=== PATIENT | male | born 1975 | race Hispanic/Latino ===

== ENCOUNTER 2017-11-28 10:35 | Observation (INO) | payer BC ==
[2017-11-28] MEDS ORDERED: DEXAMETHASONE 10 MG/ML VIAL ONE (11:53)
[2017-11-28] MEDS ORDERED: HYDROCOD 2.5mg-ACETAMIN 108mg/5mL Soln ONE (11:54)
[2017-11-28] MEDS ORDERED: NA CHLORIDE 0.9% 1,000 ML ONE (11:54)
[2017-11-28 12:05] LABS: Absolute Lymphocytes (CBC) 2.1 K/uL (0.7-4.9); Absolute Monocytes 1.2 K/uL (0.1-1.3); Absolute Neutrophil 11.9 K/uL (1.8-8.0); Basophils % 0.6 % (0-1.3); Eosinophils % 0.3 % (0-4.4); Hematocrit 43.7 % (39.6-49.0); Lymphocytes % 13.7 % (15.3-44.8); MCH 28.9 pg (27.0-35.0); MCV 87.5 fL (80-100); MPV 9.6 fL (7.6-11.3); Monocytes % 7.9 % (3.3-12.3)
[2017-11-28 12:07] LABS: BUN Blood Urea Nitrogen 9 mg/dL (6-20); Bicarbonate 25 mEq/L (21-31); Glucose Level 181 mg/dL (65-120); Potassium 3.9 mEq/L (3.6-5.0); Sodium Level 135 mEq/L (135-145)
[2017-11-28 12:09] LABS: Protime INR 1.09
--- NOTE | 2017-11-28 12:44 | RAD REPORT ---
EXAM DESCRIPTION: CT - Soft Tissue Neck W/Contr - 11/28/2017 12:34 pm CLINICAL HISTORY: Tonsillar swelling common neck pain fall, no symptomatic improvement on antibiotic therapy TECHNIQUE: During dynamic enhancement using 100 milliliters nonionic IV contrast, axial 5 millimeter thick images of the neck were obtained. All CT scans are performed using dose optimization technique as appropriate and may include automated exposure control or mA/KV adjustment according to patient size. FINDINGS: Intracranial portion of the examination is unremarkable. Mastoid air cells and paranasal s inuses are clear. No globe or orbital content abnormality identified. No nasopharyngeal mucosal mass or asymmetry. Bilateral tonsillar enlargement present. This is much more pronounced on the left. In t he deep lateral margin of the left tonsil there is a 16 millimeter diameter low-attenuation mass. Thi s extends over a 4 centimeter craniocaudal dimension. This has the appearance of a tonsillar abscess. No right tonsillar abscess. No tongue base abnormality seen. No epiglottic thickening or edema. No vocal cord abnormality identified. No retropharyngeal abscess o r abnormal fluid collection. Nonspecific bilateral cervical lymph nodes are present. No necrotic or abscessed lymph nodes seen. Th e parotid, submandibular and thyroid gland tissue show no suspicious findings. No acute bone finding. IMPRESSION: Approximately 16 millimeter diameter by 4 centimeter long left tonsillar abscess. Overall enlargement of the tonsils, left greater than right. Nonspecific bilateral cervical lymphadenopathy. This has the appearance of reactive lymph nodes. No a bscessed, necrotic or clearly malignant lymph nodes.
[2017-11-28] MEDS ORDERED: CLINDAMYCIN 900MG/D5W 900 MG/50 ML BAG IV ONE (13:25)
[2017-11-28] MEDS ORDERED: ONDANSETRON 4 MG/2 ML VIAL IV PRN (17:35)
--- NOTE | 2017-11-28 17:47 | P.HP ---
Certification for Inpatient Patient admitted to: Observation With expected LOS: <2 Midnights Patient will require the following post-hospital care: None Practitioner: I am a practitioner with admitting privileges, knowledge of patient current condition, hospital course, and medical plan of care. Services: Services provided to patient in accordance with Admission requirements found in Title 42 Section 412.3 of the Code of Federal Regulations Patient History Date of Service: 11/28/17 Primary Care Provider: Kevan Reason for admission: Tonsilar Abscess History of Present Illness: 42 y/o M with PMHX of HTN and Type 2 DM presented to the ed with Complains of having sore throat, fever and trouble swallowing that started 1 week ago and progressively got worse. Pt states that he noticed a bump couple of days and thus decided to come to the ER. Pt has not been able to swallow solids and has been having pain during swallowing liquids. No other complains to offer. No Nasal congestion or GOYAL noted. No other associated symptoms. Fever of 101 at home and took tylenol for it which helped. PCP is Dr Mathur In the ER pt had a CT of the neck done with Left tonsilar Abscess finding. ENT was consulted and Medicine was consulted to admit the pt to the hospital for further care. [place] test negative in the ER - Past Medical/Surgical History -: HTN -: Type 2 DM Physical Examination - Physical Exam General: Alert, In no apparent distress, Oriented x3 HEENT: Atraumatic, PERRLA, Other, EOMI Neck: Supple (Erythema and swelling noted in the thoart area. No drooling or tongue deviation noted. ) Respiratory: Clear to auscultation bilaterally, Normal air movement Cardiovascular: Regular rate/rhythm, Normal S1 S2 Gastrointestinal: Normal bowel sounds, No tenderness Musculoskeletal: No tenderness Integumentary: No rashes Neurological: Normal gait, Normal speech, Normal strength at 5/5 x4 extr, Normal tone, Normal affect Lymphatics: No axilla or inguinal lymphadenopathy - Studies Laboratory Data (last 24 hrs) 11/28/17 11:40: PT 12.9 H, INR 1.09, APTT 32.7 11/28/17 11:40: Sodium 135, Potassium 3.9, BUN 9, Creatinine 0.79, Glucose 181 H 11/28/17 11:40: WBC 15.4 H, Hgb 14.5, Hct 43.7, Plt Count 317 Assessment and Plan - Problems (Diagnosis) (1) Tonsil, abscess Current Visit: Yes Status: Acute Plan: Left Tonislar Abscess on the CT scan -NPO, IV fluids -Clindamycin 900 q8h -Decadron 4mg q8h -ENT consulted. Will see pt here (2) HTN (hypertension) Current Visit: Yes Status: Chronic Plan: Restart Home medication Qualifiers: Hypertension type: essential hypertension Qualified Code(s): I10 - Essential (primary) hypertension (3) Diabetes Current Visit: Yes Status: Chronic Plan: Restart home medication Qualifiers: Diabetes mellitus type: type 2 Diabetes mellitus moth exterminator insulin use: without moth exterminator use Diabetes mellitus complication status: without complication Qualified Code(s): E11.9 - Type 2 diabetes mellitus without complications Discharge Plan: Home Plan to discharge in: 24 Hours - Advance Directives Does patient have a Living Will: No Does patient have a Durable POA for Healthcare: No - Code Status/Comfort Care Code Status Assessed: Yes Critical Care: No
--- NOTE | 2017-11-28 17:47 | ER ---
Nurse's Notes [facility] Name: Frolyan Cleary Age: 42 yrs Sex: Male : 1975 Arrival Date: 11/28/2017 Time: 10:52 Bed 17 Private MD: None, None Diagnosis: Left Tonsillar Abscess Presentation: 11/28 10:57 Presenting complaint: Patient states: Swollen tonsils since Sunday, seen by PCP given aj Amoxicillin, not improving. Tonsils swollen bilaterally. Transition of care: patient was not received from another setting of care. Onset of symptoms was November 26, 2017. Care prior to arrival: None. 10:57 Method Of Arrival: Ambulatory aj 10:57 Acuity: DALJIT 4 aj 12:03 Initial Sepsis Screen: Does the patient meet any 2 criteria? No. Patient's initial iw sepsis screen is negative. Does the patient have a suspected source of infection? No. Patient's initial sepsis screen is negative. 12:03 Acuity: DALJIT 3 iw Triage Assessment: 11:00 General: Appears in no apparent distress. comfortable, Behavior is calm, cooperative, aj appropriate for age. Pain: Complains of pain in left aspect of posterior pharynx and right aspect of posterior pharynx. EENT: Throat has enlarged tonsils bilaterally Reports pain when swallowing. Neuro: Level of Consciousness is awake, alert, obeys commands, Oriented to person, place, time, situation, Appropriate for age. Respiratory: Airway is patent Respiratory effort is even, unlabored, Respiratory pattern is regular, symmetrical. Derm: Skin is intact, is healthy with good turgor, Skin is pink, warm \T\ dry. normal. Historical: - Allergies: 11:00 No Known Allergies; aj - Home Meds: 11:00 Amoxicillin Oral [Active]; Insulin: Novolin 70/30 Sub-Q [Active]; Metformin Oral aj [Active]; amlodipine-benazepril 10-20 mg oral cap 1 cap once daily [Active]; Lotrel Oral [Active]; - PMHx: 11:00 Hyperlipidemia; Hypertension; Diabetes - IDDM; aj - PSHx: 11:00 None; aj - Immunization history:: Adult Immunizations up to date. - Social history:: Smoking status: Patient/guardian denies using tobacco. Screenin:24 Abuse screen: Denies threats or abuse. Denies injuries from another. Nutritional iw screening: No deficits noted. Tuberculosis screening: No symptoms or risk factors identified. Fall Risk None identified. Assessment: 11:22 General: Appears in no apparent distress. Behavior is calm, cooperative. General: iw Reports chills for 1-2 days, fever for 1-2 days, feeling ill for 1-2 days, fatigue for 1-2 days. Pain: Complains of pain in left aspect of posterior pharynx and right aspect of posterior pharynx. Neuro: Level of Consciousness is awake, alert, obeys commands, Oriented to person, place, time. Neuro: Reports headache. Cardiovascular: Patient's skin is warm and dry. Respiratory: Airway is patent Respiratory effort is even, unlabored, Breath sounds are clear bilaterally. GI: Patient currently denies nausea, vomiting. EENT: Throat is pink has enlarged tonsils bilaterally with gag reflex present, Reports difficulty swallowing. Musculoskeletal: Range of motion: intact in all extremities. 13:30 Reassessment: Patient appears in no apparent distress at this time. Patient and/or iw family updated on plan of care and expected duration. Pain level reassessed. Patient is alert, oriented x 3, equal unlabored respirations, skin warm/dry/pink. pt states pain has decreased, now 5/10, states that he is now able to talk, VSS, pt updated on POC, waiting to be seen by Dr. Hudson after she is done with clinic. 14:13 Reassessment: Patient appears in no apparent distress at this time. Patient and/or iw family updated on plan of care and expected duration. Pain level reassessed. Patient is alert, oriented x 3, equal unlabored respirations, skin warm/dry/pink. pt requesting more pain medication, still able to talk, VSS, 100% on RA, at bedside. 15:44 Reassessment: Patient appears in no apparent distress at this time. Patient and/or tw2 family updated on plan of care and expected duration. Pain level reassessed. Patient is alert, oriented x 3, equal unlabored respirations, skin warm/dry/pink. awaiting arrival of Dr. Hudson for pt. 16:44 Reassessment: Patient appears in no apparent distress at this time. No changes from tw2 previously documented assessment. Patient and/or family updated on plan of care and expected duration. Pain level reassessed. Patient is alert, oriented x 3, equal unlabored respirations, skin warm/dry/pink. 17:37 Reassessment: Patient appears in no apparent distress at this time. No changes from tw2 previously documented assessment. Patient and/or family updated on plan of care and expected duration. Pain level reassessed. Patient is alert, oriented x 3, equal unlabored respirations, skin warm/dry/pink. 18:04 Reassessment: Patient appears in no apparent distress at this time. No changes from tw2 previously documented assessment. Patient and/or family updated on plan of care and expected duration. Pain level reassessed. Patient is alert, oriented x 3, equal unlabored respirations, skin warm/dry/pink. 19:03 Reassessment: Patient appears in no apparent distress at this time. No changes from jd3 previously documented assessment. Patient and/or family updated on plan of care and expected duration. Pain level reassessed. Patient is alert, oriented x 3, equal unlabored respirations, skin warm/dry/pink. 20:04 Reassessment: Patient appears in no apparent distress at this time. Patient and/or jd3 family updated on plan of care and expected duration. Pain level reassessed. Patient is alert, oriented x 3, equal unlabored respirations, skin warm/dry/pink. pt reported understanding on need for admission. Vital Signs: 11:00 BP 134 / 89; Pulse 89; Resp 17; Temp 98.5; Pulse Ox 98% on R/A; Weight 77.11 kg; Height aj 5 ft. 10 in. (177.80 cm); 13:31 BP 139 / 81; Pulse 74; Resp 18; Pulse Ox 100% on R/A; Pain 5/10; iw 15:29 BP 126 / 84; Pulse 74; Resp 16; Pulse Ox 98% on R/A; iw 15:44 BP 136 / 79; Pulse 76; Resp 17; Pulse Ox 97% on R/A; tw2 16:44 BP 132 / 81; Pulse 79; Resp 17; Pulse Ox 98% on R/A; tw2 17:37 BP 141 / 92; Pulse 82; Resp 17; Pulse Ox 96% on R/A; tw2 18:04 BP 141 / 92; Pulse 79; Resp 18; Pulse Ox 98% on R/A; tw2 19:02 BP 130 / 87; Pulse 77; Resp 17 S; Pulse Ox 99% on R/A; jd3 20:00 BP 129 / 89; Pulse 83; Resp 17 S; Pulse Ox 97% on R/A; jd3 11:00 Body Mass Index 24.39 (77.11 kg, 177.80 cm) ED Course: 10:52 Patient arrived in ED. mr 10:52 None, None is Private Physician. mr 10:58 Triage completed. aj 11:00 Arm band placed on right wrist. Patient placed in waiting room, Patient notified of aj wait time. 11:15 Sury Reeves, RN is Primary Nurse. iw 11:15 Dev Pandey PA is PHCP. cp 11:16 Raphael Knutson MD is Attending Physician. cp 11:39 Radiology exam delayed due to lab results not completed at this time. (BUN/Creatinine). vm2 11:46 Initial lab(s) drawn, by me, sent to lab. Inserted saline lock: 20 gauge in right iw forearm, using aseptic technique. Blood collected. 12:03 Radiology exam delayed due to lab results not completed at this time. (BUN/Creatinine). vm2 12:34 CT Soft Tissue Neck W/contr In Process Unspecified. EDMS 15:28 Primary Nurse role handed off by Sury Reeves RN tw2 15:28 Kathleen Connors RN is Primary Nurse. tw2 15:45 Bed in low position. Adult w/ patient. Pulse ox on. NIBP on. tw2 16:45 Awaiting: ENT specialist. tw2 17:45 Ofelia Quiroz MD is Hospitalizing Provider. cp 18:58 Report given to OSVALDO Rosales. tw2 18:58 No provider procedures requiring assistance completed. tw2 20:02 Patient admitted, IV remains in place. jd3 Administered Medications: 12:02 Drug: Decadron - Dexamethasone 10 mg Route: IVP; Site: right forearm; iw 13:34 Follow up: Response: No adverse reaction; Pain is decreased iw 12:03 Drug: NS 0.9% 1000 ml Route: IV; Rate: 1 bolus; Site: right forearm; iw 20:03 Follow up: Response: No adverse reaction jd3 20:03 Follow up: IV Status: Completed infusion jd3 12:03 Drug: Lortab Liquid 15 ml Route: PO; iw 13:33 Follow up: Response: No adverse reaction; Pain is decreased iw 13:30 Drug: Cleocin 900 mg Route: IVPB; Infused Over: 30 mins; Site: right forearm; iw 20:03 Follow up: Response: No adverse reaction jd3 20:03 Follow up: IV Status: Completed infusion jd3 Outcome: 17:46 Decision to Hospitalize by Provider. cp 20:01 Admitted to Med/surg accompanied by tech, via wheelchair, room 221, with chart, Report jd3 called to Augustine RILEY 20:01 Condition: stable 20:01 Instructed on the need for admit, Demonstrated understanding of instructions. 20:13 Patient left the ED. jd3 Signatures: Dispatcher [employer] EDMS Ivonne Hoover, RN Raina Garcia Irene RN OSVALDO Dev Pandey PA PA cp Wise, Tara RN RN tw2 Nhung Turner 2 Karlos Beckford RN RN jd3 Corrections: (The following items were deleted from the chart) 14:11 13:31 Pulse 74bpm; Resp 18bpm; Pulse Ox 100% RA; Pain 5/10; iw iw
--- NOTE | 2017-11-28 17:47 | EDPHYS ---
Physician Documentation [facility] Name: Froylan Cleary Age: 42 yrs Sex: Male : 1975 Arrival Date: 11/28/2017 Time: 10:52 Bed 17 Private MD: None, None ED Physician Raphael Knutson HPI: 11/28 11:40 This 42 yrs old Male presents to ER via Ambulatory with complaints of Sore cp Throat. 11:40 The patient presents with sore throat, dysphagia, of both solids and liquids. The cp patient describes throat pain as constant. 11:40 Onset: The symptoms/episode began/occurred 2 day(s) ago. Severity of symptoms: in the cp emergency department the symptoms are actually worse, moderately. 11:40 Associated signs and symptoms: Pertinent positives: dysphagia, Pertinent negatives cp cough, earache, fever, headache, vomiting. Historical: - Allergies: 11:00 No Known Allergies; aj - Home Meds: 11:00 Amoxicillin Oral [Active]; Insulin: Novolin 70/30 Sub-Q [Active]; Metformin Oral aj [Active]; amlodipine-benazepril 10-20 mg oral cap 1 cap once daily [Active]; Lotrel Oral [Active]; - PMHx: 11:00 Hyperlipidemia; Hypertension; Diabetes - IDDM; aj - PSHx: 11:00 None; aj - Immunization history:: Adult Immunizations up to date. - Social history:: Smoking status: Patient/guardian denies using tobacco. ROS: 11:48 Constitutional: Negative for body aches, chills, fever, poor PO intake. cp 11:48 Eyes: Negative for injury, pain, redness, and discharge. cp 11:48 ENT: Positive for difficulty swallowing, sore throat, Negative for drainage from ear(s), ear pain, rhinorrhea, difficulty handling secretions. 11:48 Cardiovascular: Negative for chest pain, palpitations. 11:48 Respiratory: Negative for cough, shortness of breath, wheezing. 11:48 Abdomen/GI: Negative for abdominal pain, nausea, vomiting, and diarrhea, anorexia, black/tarry stool, rectal bleeding. 11:48 : Negative for urinary symptoms. 11:48 Skin: Negative for cellulitis, rash. 11:48 Neuro: Negative for altered mental status, headache, weakness. 11:48 All other systems are negative. Exam: 11:55 Constitutional: The patient appears in no acute distress, alert, awake, cp non-diaphoretic, non-toxic, well developed, well nourished. 11:55 Head/Face: Normocephalic, atraumatic. cp 11:55 Eyes: Periorbital structures: appear normal, Pupils: equal, round, and reactive to light and accomodation, Extraocular movements: intact throughout, Conjunctiva: normal, no exudate, no injection, Sclera: no appreciated abnormality, Lids and lashes: appear normal, bilaterally. 11:55 ENT: External ear(s): are unremarkable, Ear canal(s): are normal, clear, TM's: bulging, is not appreciated, bilaterally, dullness, bilaterally, erythema, is not appreciated, bilaterally, Nose: is normal, Mouth: Lips: dry, Oral mucosa: moist, Posterior pharynx: Airway: no evidence of obstruction, patent, Tonsils: bilaterally enlarged, with erythema, Uvula: deviated to right, erythema, that is moderate, exudate, is not appreciated, Voice: is muffled. 11:55 Neck: ROM/movement: is normal, is supple, no range of motions limitations, no meningismus, no nuchal rigidity. 11:55 Chest/axilla: Inspection: normal, Palpation: is normal, no crepitus, no tenderness. 11:55 Cardiovascular: Rate: normal, Rhythm: regular. 11:55 Respiratory: the patient does not display signs of respiratory distress, Respirations: normal, no use of accessory muscles, no retractions, no splinting, labored breathing, is not present, Breath sounds: are clear throughout, no decreased breath sounds, no stridor, no wheezing. 11:55 Abdomen/GI: Inspection: abdomen appears normal, Palpation: abdomen is soft and non-tender, in all quadrants, rebound tenderness, is not appreciated, voluntary guarding, is not appreciated, involuntary guarding, is not appreciated. 11:55 Back: pain, is absent, ROM is normal. 11:55 Skin: cellulitis, is not appreciated, no rash present. 11:55 Neuro: Orientation: to person, place \T\ time. Mentation: is normal, Cerebellar function: is grossly normal, Motor: moves all fours, strength is normal, Sensation: is normal. Vital Signs: 11:00 BP 134 / 89; Pulse 89; Resp 17; Temp 98.5; Pulse Ox 98% on R/A; Weight 77.11 kg; Height aj 5 ft. 10 in. (177.80 cm); 13:31 BP 139 / 81; Pulse 74; Resp 18; Pulse Ox 100% on R/A; Pain 5/10; iw 15:29 BP 126 / 84; Pulse 74; Resp 16; Pulse Ox 98% on R/A; iw 15:44 BP 136 / 79; Pulse 76; Resp 17; Pulse Ox 97% on R/A; tw2 16:44 BP 132 / 81; Pulse 79; Resp 17; Pulse Ox 98% on R/A; tw2 17:37 BP 141 / 92; Pulse 82; Resp 17; Pulse Ox 96% on R/A; tw2 18:04 BP 141 / 92; Pulse 79; Resp 18; Pulse Ox 98% on R/A; tw2 19:02 BP 130 / 87; Pulse 77; Resp 17 S; Pulse Ox 99% on R/A; jd3 20:00 BP 129 / 89; Pulse 83; Resp 17 S; Pulse Ox 97% on R/A; jd3 11:00 Body Mass Index 24.39 (77.11 kg, 177.80 cm) aj MDM: 11:16 Patient medically screened. 12:58 Data reviewed: vital signs, nurses notes, lab test result(s), radiologic studies, CT cp scan. 13:00 Physician consultation: Joann Hudson MD was called at 13:00, was contacted at 13:00, regarding patient's condition, and will see patient in ED, later today. 17:30 Physician consultation: Joann Hudson MD was contacted at 17:30, would like admission per Dr. Ofelia Quiroz MD in the emergency department to see patient at 17:30, wants decadron 10 mg Q8 hr and Clindamycin . 11/28 11:34 Order name: CBC with Diff; Complete Time: 12:27 11/28 12:57 Interpretation: Normal except: WBC 15.4; JONO% 77.5; LYM% 13.7; NEUT A 11.9. 11/28 11:34 Order name: BMP; Complete Time: 12:27 11/28 11:34 Order name: PT-INR; Complete Time: 12:27 cp 11/28 11:34 Order name: Ptt, Activated; Complete Time: 12:27 cp 11/28 11:34 Order name: Rabun Screen Profile; Complete Time: 12:27 cp 11/28 17:38 Order name: Urinalysis [facility] 11/28 11:34 Order name: CT Soft Tissue Neck W/contr; Complete Time: 12:55 cp 11/28 11:34 Order name: IV; Complete Time: 11:46 cp 11/28 17:38 Order name: CONS Physician Consult [facility] 11/28 17:38 Order name: NPO EDAR 11/28 13:03 Order name: NPO; Complete Time: 13:23 cp Administered Medications: 12:02 Drug: Decadron - Dexamethasone 10 mg Route: IVP; Site: right forearm; iw 13:34 Follow up: Response: No adverse reaction; Pain is decreased iw 12:03 Drug: NS 0.9% 1000 ml Route: IV; Rate: 1 bolus; Site: right forearm; iw 20:03 Follow up: Response: No adverse reaction jd3 20:03 Follow up: IV Status: Completed infusion jd3 12:03 Drug: Lortab Liquid 15 ml Route: PO; iw 13:33 Follow up: Response: No adverse reaction; Pain is decreased iw 13:30 Drug: Cleocin 900 mg Route: IVPB; Infused Over: 30 mins; Site: right forearm; iw 20:03 Follow up: Response: No adverse reaction jd3 20:03 Follow up: IV Status: Completed infusion jd3 Disposition: 11/28/17 17:46 Hospitalization ordered by Ofelia Quiroz for Observation. Preliminary diagnosis is Left Tonsillar Abscess. - Bed requested for Telemetry/MedSurg (observation). - Status is Observation. jd3 - Condition is Stable. - Problem is new. - Symptoms have improved. UTI on Admission? No Addendum: 11/29/2017 22:19 Co-signature as Attending Physician, Raphael Knutson MD I agree with the assessment and k dr plan of care. Signatures: Dispatcher [employer] [facility] Ivonne Hoover RN RN aj Rittger, Kevin, MD MD [facility] Sury Reeves RN RN iw Reece Crawford em1 Page, Dev, PA PA cp Beckford, Karlos, RN RN jd3 Corrections: (The following items were deleted from the chart) 11/28 18:27 17:46 Hospitalization Ordered by Ofelia Quiroz MD for Observation. Preliminary em1 diagnosis is Left Tonsillar Abscess. Bed requested for Telemetry/MedSurg (observation). Status is Observation. Condition is Stable. Problem is new. Symptoms have improved. UTI on Admission? No. cp 20:13 18:27 11/28/2017 17:46 Hospitalization Ordered by Ofelia Quiroz MD for Observation. jd3 Preliminary diagnosis is Left Tonsillar Abscess. Bed requested for Telemetry/MedSurg (observation). Status is Observation. Condition is Stable. Problem is new. Symptoms have improved. UTI on Admission? No. em1
[2017-11-28] MEDS: NA CHLORIDE 0.9% 1,000 ML IV SCH (20:42)
[2017-11-28] MEDS: DEXAMETHASONE 4 MG/ML VIAL IV SCH (21:30)
[2017-11-28] MEDS: ENOXAPARIN 40 MG/0.4 ML SQ SCH (21:30)
--- NOTE | 2017-11-28 21:55 | P.CNS ---
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 No prior PERFORMANCE SOLUTIONS SPECIALIST. c/o L ear pain. Allergies No Known Allergies Allergy (Unverified 11/28/17 19:56) - Past Medical/Surgical History -: HTN -: Type 2 DM Physical Examination Temp Pulse Resp BP Pulse Ox 98.9 F 76 20 141/76 H 97 11/28/17 20:00 11/28/17 20:00 11/28/17 20:00 11/28/17 20:00 11/28/17 20:00 General: Alert HEENT: Atraumatic, Normocephalic, PERRLA, Mucous membr. moist/pink, Other (L tonsil deviated to midline, no bulging of palate. Mild hot potato voice, mild trismus, moderate erythema of OP), EOMI Neck: Supple Respiratory: Normal air movement Laboratory Data (last 24 hrs) 11/28/17 11:40: PT 12.9 H, INR 1.09, APTT 32.7 11/28/17 11:40: Sodium 135, Potassium 3.9, BUN 9, Creatinine 0.79, Glucose 181 H 11/28/17 11:40: WBC 15.4 H, Hgb 14.5, Hct 43.7, Plt Count 317 Imagings Data: CT neck images personally reviewed - hypodensity at level of tonsil is deep/ posterior to tonsil - about 1.5 cm from surface. The abscess cavity tracks inferior to the level of the tip of epiglottis. Expected degree of LAD for condition. Conclusions/Impression: Given location of abscess, I&D at bedside would be difficult and would not likely access the inferior aspect of the abscess. The inferior portion is very superficial and close to the mucosal surface and may spontenously rupture with medical therapy. Will start diet today but keep patient NPO after midnight. Will reassess clinically in the AM. If he's significantly improved, will plan for continued medical therapy and discharge. If not improved, will attempt needle/bedside I&D or consider I&D in OR to access inferior portion of the abcess.
[2017-11-28] MEDS ORDERED: Morphine 2 MG/2 ML SYR IV PRN (23:11)
[2017-11-29] MEDS ORDERED: CLINDAMYCIN 900MG/D5W 900 MG/50 ML BAG IV ONE (00:06)
[2017-11-29] MEDS: CLINDAMYCIN INJ 900 MG in NA CHLORIDE 0.9% 50 ML IV SCH ×2 (00:12→09:43)
[2017-11-29] MEDS: DEXAMETHASONE 4 MG/ML VIAL IV SCH ×2 (00:20→09:43)
[2017-11-29] MEDS: NA CHLORIDE 0.9% 1,000 ML IV SCH (04:37)
[2017-11-29 07:04] LABS: Absolute Lymphocytes (CBC) 1.4 K/uL (0.7-4.9); Absolute Monocytes 0.4 K/uL (0.1-1.3); Absolute Neutrophil 8.2 K/uL (1.8-8.0); Basophils % 0.1 % (0-1.3); Hematocrit 42.5 % (39.6-49.0); Lymphocytes % 13.6 % (15.3-44.8); MCH 29.5 pg (27.0-35.0); MCV 87.7 fL (80-100); MPV 9.5 fL (7.6-11.3); Monocytes % 4.3 % (3.3-12.3); RBC Red Blood Cell Count 4.84 M/uL (4.33-5.43)
--- NOTE | 2017-11-29 07:36 | P.PN ---
Date of Service: 11/29/17 Patient feeling much better. Voice improved. Reports during showinging, his spit up some pus and I suspect he his spontaneously rupture the abscess. Patient reports about 4 infections of the throat/tonsils yearly for about 20 years and is interested in tonsillectomy NAD. Alert. L tonsillar swelling/displacement improved. Erythema improved. L INSURANCE FOLLOW UP SPECIALIST, improved with medical therapy. Start diet OK to DC with PO Clinda and Medrol dose pack. FU with Dr Sherwood in about 1 month to further discuss/schedule tonsillecomy
[2017-11-29 08:30] LABS: ALT/SGPT 33 IU/L (10-60); AST/SGOT 16 IU/L (10-42); Albumin 3.3 g/dL (3.2-5.5); Alkaline Phosphatase 92 IU/L (42-121); Bicarbonate 25 mEq/L (21-31); Potassium 4.8 mEq/L (3.6-5.0); Protein, Total 7.1 g/dL (6.0-8.3); Sodium Level 138 mEq/L (135-145)
[2017-11-29 08:41] LABS: BUN Blood Urea Nitrogen 15 mg/dL (6-20); Bilirubin Total 0.5 mg/dL (0.3-1.2); Glucose Level 201 mg/dL (65-120)
[2017-11-29 08:49] LABS: Urine Appearance CLEAR; Urine Bilirubin NEGATIVE (NEG); Urine Blood NEGATIVE (NEG); Urine Color YELLOW; Urine Glucose NEGATIVE (NEG); Urine Protein TRACE (NEG); Urine Specific Gravity >=1.030 (1.005-1.030); Urine Urobilinogen 0.2 mg/dL (0.2-1.0)
[2017-11-29 08:50] LABS: Urine Microscopic Reflex ORDER UMIC
[2017-11-29 09:12] LABS: Urine Bacteria <20 /HPF (NONE SEEN); Urine Culture Reflex Order NOT NEEDED; Urine RBC <5 /HPF (NONE SEEN)
[2017-11-29] MEDS: ENOXAPARIN 40 MG/0.4 ML SQ SCH (09:43)
--- NOTE | 2017-11-29 13:36 | P.SSS ---
Patient History Date of Service: 11/29/17 Primary Care Provider: Kevan Reason for admission: Tonsilar Abscess History of Present Illness: 42 y/o M with PMHX of HTN and Type 2 DM presented to the ed with Complains of having sore throat, fever and trouble swallowing that started 1 week ago and progressively got worse. Pt states that he noticed a bump couple of days and thus decided to come to the ER. Pt has not been able to swallow solids and has been having pain during swallowing liquids. No other complains to offer. No Nasal congestion or GOYAL noted. No other associated symptoms. Fever of 101 at home and took tylenol for it which helped. PCP is Dr Mathur In the ER pt had a CT of the neck done with Left tonsilar Abscess finding. ENT was consulted and Medicine was consulted to admit the pt to the hospital for further care. Zavala test negative in the ER Allergies No Known Allergies Allergy (Verified 11/28/17 23:33) Home Medications: Insulin Aspart Protam & Aspart [Novolog Mix 70-30 Flexpen Syrn] 6 unit SQ SEECOM 11/28/17 Insulin Aspart Protam & Aspart [Novolog Mix 70-30 Flexpen Syrn] 11 unit SQ SEECOM 11/28/17 Metformin HCl [Glucophage*] 500 mg PO BIDWM 11/28/17 Amlodipine Besylate/Benazepril [Amlodipine-Benazepril 10-20 mg] 1 each PO DAILY 11/29/17 Clindamycin HCl [Cleocin HCl] 300 mg PO Q8H #30 capsule 11/29/17 Methylprednisolone [Medrol dosepack] 4 mg PO DIRECTED #1 martha 11/29/17 - Past Medical/Surgical History Has patient received pneumonia vaccine in the past: No Diabetic: Yes -: HTN -: Type 2 DM -: hyperlipidemia - Social History Smoking Status: Never smoker Alcohol use: Yes CD- Drugs: No Caffeine use: No Place of Residence: Home Review of Systems General: As per HPI Physical Examination - Vital Signs Temperature: 98.3 F Blood Pressure: 140/74 Pulse: 73 Respirations: 18 Pulse Ox (%): 99 - Physical Exam General: Alert, In no apparent distress HEENT: Atraumatic, PERRLA, Mucous membr. moist/pink, EOMI, Sclerae nonicteric Neck: Supple, 2+ carotid pulse no bruit, No LAD, Without JVD or thyroid abnormality Respiratory: Clear to auscultation bilaterally, Normal air movement Cardiovascular: Regular rate/rhythm, Normal S1 S2 Gastrointestinal: Normal bowel sounds, No tenderness Musculoskeletal: No tenderness Integumentary: No rashes Neurological: Normal gait, Normal speech, Normal strength at 5/5 x4 extr, Normal tone, Normal affect Lymphatics: No axilla or inguinal lymphadenopathy - Diagnosis (Problem(s)) (1) Tonsil, abscess Onset Date: 11/29/17 Current Visit: Yes Status: Resolved (2) HTN (hypertension) Onset Date: 11/29/17 Current Visit: Yes Status: Chronic Qualifiers: Hypertension type: essential hypertension Qualified Code(s): I10 - Essential (primary) hypertension (3) Diabetes Onset Date: 11/29/17 Current Visit: Yes Status: Chronic Qualifiers: Diabetes mellitus type: type 2 Diabetes mellitus mcfp insulin use: without terminal operator use Diabetes mellitus complication status: without complication Qualified Code(s): E11.9 - Type 2 diabetes mellitus without complications Treatment Summary: Overall during the hospital stay patient remained stable Patient was initially admitted to the hospital for left tonsillar abscess. Was started on clindamycin. ENT was consulted who recommended Decadron IV. Patient had marked improvement in his symptoms and thus was discharged home under stable condition. Patient was given PO Clindamycin 300mg and was discharged home. - Disposition Disposition: ROUTINE DISCHARGE Condition: GOOD Diet: Regular Activity: Ad mahesh
== END 2017-11-29 14:15 | disposition home or self-care (01) ==
LOC: ER 10:35 → ERHOLD 17:37 → 2ND 18:59
PROVIDERS: ADMIT Family Medicine; ATTEND Family Medicine
DX: J36 Peritonsillar abscess (principal); I10 Essential (primary) hypertension; E11.9 Type 2 diabetes mellitus without complications; E78.5 Hyperlipidemia, unspecified
CPT/HCPCS: 36415; 70491; 80048; 80053; 81003; 81015; 85025; 85610; 85730; 86308; 96361; 96365; 96366; 96375; 99285; G0378; J1100; J1650; J2270; J7030; Q9967